=== PATIENT | female | born 1940 | race Caucasian/White ===

== ENCOUNTER 2016-08-04 10:43 | Emergency (ER) | payer MEDICARE, OTHER ==
[2016-08-04] MEDS ORDERED: DEXAMETHASONE 10 MG/ML VIAL PO STA (11:56)
[2016-08-04] MEDS ORDERED: DEXAMETHASONE 10 MG/ML VIAL ONE (12:05)
[2016-08-04] MEDS ORDERED: CHERRY SYRUP 10 ML UDC PO ONE (12:05)
== END 2016-08-04 12:10 | disposition home or self-care (01) ==
DX: H66.001 Acute suppurative otitis media without spontaneous rupture of ear drum, right ear (principal)
CPT/HCPCS: 87070; 87430; 99283; A9270

== ENCOUNTER 2017-03-05 10:56 | Outpatient (CLI) | payer MEDICARE, OTHER ==
--- NOTE | 2017-03-05 16:25 | XRAY Report ---
SKELETAL SURVEY: 03/05/2017 CLINICAL INDICATION: Multiple myeloma. FINDINGS: Skeletal survey, comprised of lateral skull, lateral cervical spine, frontal chest, fronta l and lateral thoracic and lumbar spine, frontal pelvis, and frontal proximal upper and lower extremi ties, was performed. There are lucent foci in the skull, cervical spine, left scapula, right humerus, and pelvis, compatib le with multiple myeloma. Degenerative changes are seen in the hips, lumbar spine, thoracic spine, ce rvical spine and shoulders. The lungs are clear. The bowel gas pattern is unremarkable. IMPRESSION: LUCENT LESIONS, COMPATIBLE WITH MULTIPLE MYELOMA. JOB #: [id number] EXT JOB #:[id number]
== END 2017-03-05 10:57 | disposition home or self-care (01) ==
LOC: DI 10:56
PROVIDERS: ATTEND Specialist
DX: C90.01 Multiple myeloma in remission (principal)
CPT/HCPCS: 77075

== ENCOUNTER 2017-03-05 12:55 | Outpatient (CLI) | payer MEDICARE, OTHER ==
--- NOTE | 2017-03-06 16:58 | Mammography Report ---
DIGITAL SCREENING MAMMOGRAM: 03/05/2017 CLINICAL INDICATION: A 76-year-old nulliparous patient for screening. COMPARISON: 02/2016, 10/2014, 09/2013, 01/2011, 12/2009. TECHNIQUE: Routine CC and MLO projections were obtained of the breasts. The breasts again demonstrate heterogeneously dense fibroglandular parenchyma bilaterally. Coarse an d punctate, typically benign calcifications are present. No suspicious masses, clustered microcalcif ications, or regions of architectural distortion are identified. IMPRESSION: BENIGN FINDINGS. RECOMMENDATION: ROUTINE ANNUAL SCREENING UNLESS OTHERWISE CLINICALLY INDICATED. BIRADS CATEGORY: 2, BENIGN FINDINGS. STANDARD QUALIFYING STATEMENTS 1. This examination was reviewed with the aid of Computed-Aided Detection (CAD). 2. A negative or benign imaging report should not delay biopsy if clinically suspicious findings are present. Consider surgical consultation if warranted. More than 5% of cancers are not identified b y imaging. 3. Dense breasts may obscure an underlying neoplasm. JOB #: [id number] EXT JOB #:[id number]
== END 2017-03-05 12:56 | disposition home or self-care (01) ==
LOC: DI.N 12:55
PROVIDERS: ATTEND Specialist
DX: Z12.31 Encounter for screening mammogram for malignant neoplasm of breast (principal)
CPT/HCPCS: 77067

== ENCOUNTER 2019-03-19 16:05 | Outpatient (CLI) | payer MEDICARE, OTHER ==
--- NOTE | 2019-03-22 13:42 | Ultrasound Report ---
Reason: LIPOMA Procedure Date: 03/19/2019 Accession Number: [id number] / [id number] Procedure: US - Abdomen Limited CPT Code: FULL RESULT: EXAM: ABDOMEN ULTRASOUND LIMITED EXAM DATE: 03/19/2019 05:00 PM. CLINICAL HISTORY: Palpable lump anterior abdominal wall. COMPARISON: None. TECHNIQUE: Real-time scanning was performed with static images obtained. FINDINGS: Corresponding to the palpable lump in the left supraumbilical region is an isoechoic to adjacent fat avascular lobulated 2.4 x 0.9 x 2.3 cm lesion, most likely a lipoma. IMPRESSION: The left supraumbilical palpable lump is most consistent with a lipoma by ultrasound. RADIA
== END 2019-03-19 16:06 | disposition home or self-care (01) ==
LOC: DI 16:05
PROVIDERS: ATTEND Family Medicine
DX: D17.9 Benign lipomatous neoplasm, unspecified (principal)
CPT/HCPCS: 76705

== ENCOUNTER 2019-03-19 16:07 | Outpatient (CLI) | payer MEDICARE, OTHER ==
--- NOTE | 2019-03-22 10:30 | Mammography Report ---
Reason: SCREENING MAMMO Procedure Date: 03/19/2019 Accession Number: [id number] / [id number] Procedure: ANT - Screening Mammo w/Mau CPT Code: FULL RESULT: EXAM: Screening Mammo w/Mau DATE: 03/19/2019 4:37 PM CLINICAL HISTORY: Nulliparous patient for routine screening. Personal history of multiple myeloma. TECHNIQUE: (B) - Bilateral CC and MLO views were obtained. COMPARISON: 03/05/2017, 02/21/2016, 11/25/2014, 10/12/2013, 02/28/2011 and 01/12/2010 PARENCHYMAL PATTERN: (D) - The breasts demonstrate heterogeneously dense fibroglandular parenchyma bilaterally. FINDINGS: No significant interval change. There are no suspicious masses, calcifications, or areas of distortion. IMPRESSION: Negative examination. BI-RADS category 1. RECOMMENDATION: (ANNUAL) - Recommend routine annual screening mammography. BI-RADS CATEGORY: (1) - Negative. STANDARD QUALIFYING STATEMENTS: 1. This examination was not reviewed with the aid of Computer-Aided Detection (CAD). 2. A negative or benign imaging report should not preclude biopsy if clinically suspicious findings are present. 3. Dense breasts may obscure an underlying neoplasm. 4. This examination was reviewed with the aid of 3D breast imaging (tomosynthesis).
== END 2019-03-19 16:08 | disposition home or self-care (01) ==
LOC: DI 16:07
PROVIDERS: ATTEND Family Medicine
DX: Z12.31 Encounter for screening mammogram for malignant neoplasm of breast (principal)
CPT/HCPCS: 77063; 77067

== ENCOUNTER 2019-05-19 08:26 | Day surgery (SDC) | payer MEDICARE, OTHER ==
[2019-05-19] MEDS ORDERED: MIDAZOLAM 2 MG/2 ML VIAL IVP ONE (08:27)
[2019-05-19] MEDS ORDERED: fentaNYL 250 MCG/5 ML VIAL IVP ONE (08:27)
[2019-05-19] MEDS ORDERED: LACTATED RINGERS 1,000 ML IV ONE (08:37)
[2019-05-19 11:06] VITALS: BP 112/69
== END 2019-05-19 08:27 | disposition home or self-care (01) ==
LOC: SDS 08:26
PROVIDERS: ATTEND Surgery
PROC: 0DJD8ZZ Inspection of Lower Intestinal Tract, Via Natural or Artificial Opening Endoscopic (ICD-10-PCS; principal; 2019-05-19 10:00)
DX: Z12.11 Encounter for screening for malignant neoplasm of colon (principal); K57.30 Diverticulosis of large intestine without perforation or abscess without bleeding; K64.8 Other hemorrhoids; I10 Essential (primary) hypertension; Z86.010 Personal history of colon polyps; Z79.899 Other long term (current) drug therapy; Z80.1 Family history of malignant neoplasm of trachea, bronchus and lung; Z87.891 Personal history of nicotine dependence
CPT/HCPCS: G0105; J3010; J7120

== ENCOUNTER 2022-03-14 14:08 | Outpatient (CLI) | payer MEDICARE, OTHER | END 2022-03-14 23:59 | disposition home or self-care (01) | LOC: LAB.N 14:08 | PROVIDERS: ATTEND Registered Nurse | DX: R32 Unspecified urinary incontinence (principal); R82.79 Other abnormal findings on microbiological examination of urine; R39.15 Urgency of urination | CPT/HCPCS: 87086; 87181 ==

== ENCOUNTER 2022-11-28 11:15 | Outpatient (CLI) | payer MEDICARE, OTHER | END 2022-11-28 11:30 | disposition home or self-care (01) | LOC: LAB.N 11:15 | PROVIDERS: ATTEND Family Medicine | DX: N39.0 Urinary tract infection, site not specified (principal) | CPT/HCPCS: 87086; 87181 ==

== ENCOUNTER 2023-01-08 11:30 | Outpatient (CLI) | payer MEDICARE, OTHER ==
[2023-01-08 11:59] LABS: BILIRUBIN,URINE NEGATIVE (NEGATIVE); GLUCOSE, URINE (UA) NEGATIVE (NEGATIVE); KETONES,URINE (UA) NEGATIVE (NEGATIVE); LEUKOCYTE ESTERASE, URINE MODERATE (NEGATIVE); NITRITE,URINE POSITIVE (NEGATIVE); OCCULT BLOOD,URINE NEGATIVE (NEGATIVE); PROTEIN,URINE TRACE mg/dL (NEGATIVE); UROBILINOGEN,URINE 0.2 (NORMAL) E.U./dL (NORMAL)
[2023-01-08 12:06] LABS: BACTERIA,URINE Moderate /HPF (None Seen); CLARITY,URINE CLOUDY (CLEAR); RBC,URINE 0-5 /HPF (0-5); SQUAMOUS EPITHELIAL CELL,UR RARE Squamous (<= Few); WBC,URINE >25 /HPF (0-5)
== END 2023-01-08 11:31 | disposition home or self-care (01) ==
LOC: LAB 11:30
PROVIDERS: ATTEND Family Medicine
DX: N30.00 Acute cystitis without hematuria (principal)
CPT/HCPCS: 81001

== ENCOUNTER 2023-12-22 12:59 | Outpatient (CLI) | payer MEDICARE, OTHER ==
--- NOTE | 2023-12-22 16:36 | SLEEP CARE CONSULTATION ---
Information from patient questionnaire entered by Deyanira Perea. I have reviewed and concur with the information entered by Deyanira Perea. This document represents the service I personally performed and the decisions made by me, Jacob Schneider MD, [facility]. History of Present Illness Service Date and Time: 12/22/2023 1259 Reason for Visit: New patient Chief Complaint: reports: Frequent awakenings at night, Other (ACTING OUT DREAM FALLING OUT OF BED) Date of Onset: YRS Usual bedtime: 2229 Time it takes to fall asleep: 10-20MNS Snores at night: Yes Observed to quit breathing while asleep: No Sleeps alone due to snoring: No Number of times waking at night: 2 Reasons for waking at night: reports: Bathroom Recalls having dreams: Yes Usually gets out of bed at: 0715 Feels refreshed in the morning: No Morning headache: No Sleepy or fatigued during the day: Yes Ever fallen asleep while driving: No Takes day naps: Yes Dreams during day naps: No Prior sleep studies: Yes Additional HPI information: I have the pleasure of seeing Ms. Cano today regarding the possibility of her having obstructive sleep apnea. As you know, she is a 82 year old lady who complains of REM behavior disorder. She says that it occurs about once a month and she has had it for about 14 years. She sustained an injury 2 months ago when she fell out of bed. Prior to that, there has not been any injury to her or her . She had a sleep study [address] [facility] in [place]. The study showed moderate obstructive sleep apnea-hypopnea with an AHI of 21.3. She did not want to try CPAP. She said she never got to see the sleep physician there. She is taking melatonin 3 mg at bedtime. So far, she could not see any benefit. The patient tells me that she normally goes to bed around 10:30 pm, and it takes her approximately 10 - 20 minutes to fall asleep. She has been told that she snores loudly and irregularly at night. She has never been observed to stop breathing in her sleep. Her sleeps in the same bed. She can recall waking up on the average of 2 times during the night. Most of the time she wakes up because of having to use the bathroom. She has never awakened because of her own snoring, choking, or having to gasp for air. There is not a lot of tossing and turning in her sleep. Generally, she can recall having dreams. In the morning she usually gets up out of the bed around 7:15 a.m. not feeling refreshed nor rested. She usually does not have a morning headache. During the day she complains of feeling sleepy and fatigued. Her score on [place] Sleepiness Scale is 7 out of 24. She never has fallen asleep while driving nor has had any accident due to sleepiness. She usually takes naps during the day. Upon falling asleep during the day she denies having vivid dreams. She has symptoms of restless leg syndrome. She reports having impaired concentration during the day. - Parasomnia Symptoms Ever been unable to move upon waking from sleep: No Walks in sleep: No Talks in sleep: Yes Ever acted out dreams in sleep: Yes Ever felt weak in the knees when startled or emotional: No Bothered by creepy, crawly, restless sensations in legs: Yes Problems with memory or concentration: Yes Subjective Initial [place] Sleepiness Scale score: 7 (12/18/23) Past Medical History Past Medical History: reports: Hypothyroidism, Other (MULTIPLE MYLOMAS) Social History The patient's occupation is a RE. Patient is and lives in [place]. Have you smoked in the past 12 months: No Cigarettes per day (20/pack): 20 Years of smokin Quit date: Smoking Pack Years: 3.0 Alcohol use: Yes Alcohol amount and frequency: 4OZ OCCASSIONALLY Caffeine use: Yes Caffeine amount and frequency: 1/3 CUP COFFEE EVERY MORNING Family History Family history of sleep disordered breathing: No Allergies and Home Medications Known drug allergies: Yes ( LISTED) Drug allergies reviewed: Yes Home medication list reviewed: Yes Allergy and home medication list: Allergies azithromycin Allergy (Verified 12/18/23 11:15) Nausea Review of Systems Weight loss over past 5 years: 10 Cardiovascular: reports: high blood pressure Respiratory: denies: shortness of breath, wheeze, sputum production, chronic cough, other Gastrointestinal: denies: heartburn, difficulty swallowing, nausea, vomitting, diarrhea, abdominal pain, other Urinary: reports: urgency Neurological: reports: gait or balance problems Psychiatric: denies: Attention Deficit Hyperactivity, anxiety, depression, mood disorder, claustrophobia, other Ear/Nose/Throat: denies: nasal congestion, sinus problems, nose bleeds, dry mouth/throat, hoarseness, injury to nose, tonsillectomy, wisdom teeth removed, other Endocrine: reports: thyroid disease Musculoskeletal: reports: back pain, mobility problems Immunologic: reports: sneezing, allergies to food or environment Physical Exam Vital signs obtained and entered by: DEYANIRA Mccollum MA Blood Pressure: 131/81 (RIGHT ARM) Cuff size: regular Heart Rate: 85 O2 Saturation: 99 Height: 5 ft 3 in Weight: 157 lb 3.2 oz Body Mass Index: 27.8 BMI Classification: Overweight Neck circumference: 15.25 Mood/affect: Normal HEENT: No craniofacial malformation Nostrils: patent to airflow Turbinates: normal Septum: midline Mouth and throat: narrow oropharynx Soft palate: long Hard palate: normal Uvula: normal Uvula visualization: 50% Mallampati Class II Tongue: normal in size Tonsils: small Chin and jaw: normal size and position Neck: normal w/o lymphadenopathy or thyromegaly Heart: regular rate and rhythm, murmur Lungs: clear bilaterally Extremities: no edema or clubbing Neurologic: intact Impression and Plan IMPRESSION: 1. Obstructive Sleep Apnea-Hypopnea Syndrome, moderate, as previously diagnosed but untreated. She appears to be symptoms for loud snore, unrefreshed sleep, and daytime hypersomnolence. I recommend proceeding to polysomnography to confirm the diagnosis and to assess severity. I informed the patient of what the sleep studies involve and after some discussion, she agreed to proceed. 2. 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 So far, there has been only 1 injury in 14 years. Therefore, medication is not necessary at this time. I advised her to keep her bedroom environment safe, which she has already done. She may increase melatonin dosage to 10 mg. Plan: 1. Schedule polysomnography and return in 1 to 2 weeks after the study to discuss results and initiate therapy. 2. Keep bedroom environment safe. Follow up with Sleep Care in: 1-2 months Visit Type: In Office Time Spent with Patient (minutes): 15 Provider Statement: I spent 100% of the Face to Face Visit with the patient with greater than 50% spent counseling the patient and coordination of care.
[2023-12-22 16:40] VITALS: BP 131/81; O2SAT 99
== END 2023-12-22 13:00 | disposition home or self-care (01) ==
LOC: SC 12:59
PROVIDERS: ATTEND Internal Medicine Pulmonary Disease
DX: G47.33 Obstructive sleep apnea (adult) (pediatric) (principal); G47.52 REM sleep behavior disorder; E66.3 Overweight; Z68.27 Body mass index [BMI] 27.0-27.9, adult; Z87.891 Personal history of nicotine dependence
CPT/HCPCS: 99202; G0463; 99212

== ENCOUNTER 2023-12-22 20:31 | Outpatient (CLI) | payer MEDICARE, OTHER | END 2023-12-22 20:32 | disposition home or self-care (01) | LOC: SC 20:31 | PROVIDERS: ATTEND Internal Medicine Pulmonary Disease | DX: G47.33 Obstructive sleep apnea (adult) (pediatric) (principal); G47.61 Periodic limb movement disorder; G47.52 REM sleep behavior disorder; Z87.891 Personal history of nicotine dependence; E66.3 Overweight; Z68.27 Body mass index [BMI] 27.0-27.9, adult | CPT/HCPCS: 95810; 99202; G0463; 99212 ==

== ENCOUNTER 2024-01-19 11:11 | Outpatient (CLI) | payer MEDICARE, OTHER ==
--- NOTE | 2024-01-19 19:49 | SLEEP CARE CONSULTATION ---
Information from patient questionnaire entered by Deyanira Perea. I have reviewed and concur with the information entered by Deyanira Perea. This document represents the service I personally performed and the decisions made by me, Jacob Schneider MD, [facility]. History of Present Illness Service Date and Time: 01/19/2024 1111 Current [place] Sleepiness Scale score: 6 (01/19/24) Additional HPI information: Ms. Cano returned for follow up of the sleep study she had on 12/22/2023. The polysomnography showed that the patient had poor sleep efficiency due to sleep onset insomnia and prolonged awakenings during the night. The sleep architecture was abnormal for sleep fragmentation and reduced amount of time spent in REM and slow wave sleep (N3). Respiratory monitoring showed no sleep disordered breathing (AHI = 0.0) or hypoxia (rosario oxygen saturation of 90%). There was minimal supine sleep (supine AHI = 0.0; non-supine = 0.00). Snore was infrequent and light in intensity. There was severe periodic leg movement of sleep, contributing to the sleep fragmentation. Cardiac rhythm was normal sinus rhythm without significant arrhythmia. No abnormal behavior (parasomnia) observed during the night. The patient was informed of these findings. I explained to her that she has frequent periodic leg movement during the night. The patient reports noticing the leg jerks on rare occasions as she is falling asleep. She denies having restless leg syndrome. She has increased her melatonin dose from 3 to 9 mg at bedtime and starts taking Benadryl. She said she has not been sleeping well since her had a stoke. Sleep Study - Results Type of Sleep Study: Polysomnography (COMPLETED 12/22/23) Allergies and Home Medications Drug allergies reviewed: Yes Home medication list reviewed: Yes Allergy and home medication list: Allergies azithromycin Allergy (Verified 01/19/24 09:54) Nausea Review of Systems Review of systems same as previous: Yes (NO CHANGE) Physical Exam Vital signs obtained and entered by: DEYANIRA Mccollum MA Height: 5 ft 3 in Impression and Plan IMPRESSION: 1. 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 Treatment is not indicated. The cause of periodic leg movement of sleep is typically unknown. A few known causes are iron deficiency, renal failure, and selective serotonin reuptake inhibitors. Iron and ferritin levels are recommended in addition to the routine blood work. 2. 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 So far, there has been only 1 injury in 14 years. Therefore, medication is not necessary at this time. I advised her to keep her bedroom environment safe, which she has already done. She may increase melatonin dosage to 10 mg. PLAN: 1. Stay on melatonin 9 mg. 2. Do not take Benadryl as it can worsen periodic leg movement of sleep. 3. Consider neurology referral for further evaluation of neurological disorders related to REM behavior disorder. 4. Return in 3 months for a follow up. Follow up with Sleep Care in: 3 months Visit Type: Telehealth Video Video Type: Doximity Time Spent with Patient (minutes): 15 Provider Statement: I spent 100% of the Telehealth Video Call with the patient with greater than 50% spent counseling the patient and coordination of care.
== END 2024-01-19 11:12 | disposition home or self-care (01) ==
LOC: SC 11:11
PROVIDERS: ATTEND Internal Medicine Pulmonary Disease
DX: G47.61 Periodic limb movement disorder (principal); G47.52 REM sleep behavior disorder
CPT/HCPCS: 99212; G0463